=== PATIENT | male | born 1955 | race Caucasian/White ===

== ENCOUNTER → 2017-03-23 | Outpatient (CLI) | payer OTHER ==
--- NOTE | 2017-03-23 12:18 | CT ---
EXAMINATION TYPE: CT chest w con DATE OF EXAM: 03/23/2017 COMPARISON: NONE HISTORY: Cough for 2 weeks with hemoptysis for [address] DLP: 712 mGycm Automated exposure control for dose reduction was used. CONTRAST: CT scan of the chest is performed with IV Contrast, patient injected with 100 mL of Omnipaque 300. FINDINGS: LUNGS: There is a 4.4 cm area of masslike consolidation involving the right upper lobe adjacent hilar adenopathy. Suspicious for malignancy. Correlate clinically to exclude pneumonia. Small pleural effu codey seen. 2 mm nodule left lower lobe image 29. MEDIASTINUM: Soft tissue fullness measuring 1.2 cm in short axis right hilum compatible with adenopat hy. No mediastinal adenopathy. Shotty adenopathy in the axilla. OTHER: Adrenal glands normal morphology. Small hiatal hernia noted. Liver and spleen demonstrate no focal mass as visualized. Tiny shoddy lymph nodes seen in the cardiophrenic angle on the right measur ing less than 5 mm.. IMPRESSION: 1. 4.4 cm masslike consolidation right upper lobe suspicious for malignancy. Pneumonia also a conside ration. There is adjacent hilar adenopathy. 2 mm nodule left lower lobe image 39 is too small to raj acterize.
== END ==
LOC: RADCTMAIN 11:13
PROVIDERS: ATTEND Family Medicine
DX: R04.2 Hemoptysis (principal); R91.1 Solitary pulmonary nodule
CPT/HCPCS: 71260; Q9967

== ENCOUNTER → 2017-04-07 | Outpatient (CLI) | payer OTHER ==
--- NOTE | 2017-04-08 09:47 | PE ---
EXAMINATION TYPE: PET CT fusion skull to thigh DATE OF EXAM: 04/07/2017 COMPARISON: CT chest 03/23/2017 Prior PET/CT: None HISTORY: Lung cancer TECHNIQUE: Following the intravenous administration of 10.57 mCi of F-18 FDG, whole body images are performed from the skull base to the midthigh. Images are reviewed on the computer in the coronal, a xial, and sagittal planes. Reconstructed rotating images are created on independent workstation and reviewed on the computer. A localization and attenuation correction CT is performed in conjunction with the PET scan. DLP: 475.12 mGycm SCAN: Initial Blood glucose: 101 mg/dL Average Mediastinum SUV: 1.06 Average Liver SUV: 2.57 FINDINGS: NECK: No abnormal uptake THORAX: There is a focal area of increased uptake within the posterior right midlung. This has an SUV value of 6.34 compatible with a neoplastic process. No additional abnormal uptake within the chest is evident. No abnormal mediastinal adenopathy is evid ent. No abnormal uptake within the mediastinum is present. ABDOMEN: No abnormal uptake. PELVIS: No abnormal uptake OSSEOUS STRUCTURES: No abnormal uptake LOCALIZATION CT: The ascending thoracic aorta at the level the main pulmonary artery is 3.4 cm. The m ain pulmonary artery at the bifurcation is 2.2 cm. No enlarged mediastinal adenopathy is evident. A s mall pretracheal node is present with a transverse dimension of 0.7 cm. Abnormal uptake is not identi fied. The lung mass. Cavitation in the posterior right lung on the current examination is estimated t o measure 3.6 x 2.2 cm. COMPARISON: Lung mass appears somewhat smaller than the recent CT comparison. IMPRESSION: 1. Abnormal uptake within a solitary pulmonary mass in the posterior right midlung suspicious for vannesa plasm. 2. Metastatic disease is not identified.
== END | disposition home or self-care (01) ==
LOC: RADPETMAIN 11:02
PROVIDERS: ATTEND Internal Medicine
DX: R91.8 Other nonspecific abnormal finding of lung field (principal)
CPT/HCPCS: 78815; A9552

== ENCOUNTER 2017-04-30 08:48 | Day surgery (SDC) | payer OTHER ==
[2017-04-30] MEDS ORDERED: HYDROmorphone 1 MG/ML 1 ML SYRINGE IVP PRN (08:52)
[2017-04-30] MEDS ORDERED: ALPRAZolam 0.5 MG TAB PO ONE (08:52)
[2017-04-30 09:13] VITALS: RESP 20; TEMP 97.8
[2017-04-30 09:30] LABS: Mean Platelet Volume 8.3
[2017-04-30 09:52] VITALS: BP 157/93; PULSE 77
--- NOTE | 2017-04-30 15:35 | CT ---
EXAMINATION TYPE: CT discontinued procedure DATE OF EXAM: 04/30/2017 COMPARISON: PET/CT 04/07/2017 HISTORY: Right lung cancer lung mass, R 22.2 CT DLP: 383 mGycm Automated exposure control for dose reduction was used. FINDINGS: Preliminary scanning performed through the region of patient's previously identified abnormality show s improvement in the previously identified mass. Some minimal residual inflammatory change, scarring is suspected with pleural thickening. IMPRESSION: THE EXAM WAS ABORTED DUE TO THE INTERVAL CHANGE IN APPEARANCE. RECOMMEND SHORT INTERVAL FOLLOW-UP TO ASSESS FOR CONTINUED RESOLUTION, IMPROVEMENT.
== END 2017-04-30 10:25 | disposition home or self-care (01) ==
LOC: RADPROMAIN 08:48
PROVIDERS: ATTEND Internal Medicine
DX: C34.91 Malignant neoplasm of unspecified part of right bronchus or lung (principal); Z53.8 Procedure and treatment not carried out for other reasons
CPT/HCPCS: 36415; 76380; 85049; 85610